=== PATIENT | male | born 1980 | race Caucasian/White ===

== ENCOUNTER 2019-05-02 23:01 | Emergency (ER) | payer SELFPAY ==
[~2019-05-02] VITALS: Ht 180.3 cm; Wt 103.4 kg
[2019-05-02 23:03] VITALS: Ht 180.3 cm; Wt 103.4 kg
[2019-05-02 23:37] LABS: BASOPHIL % 0.3 % (0-2); PLATELET COUNT 252 x10^3mcL (130-400); RED CELL DISTRIBUTION WIDTH 13.4 % (11.5-14.5)
[2019-05-03 00:41] VITALS: BP 137/95
== END 2019-05-03 00:41 | disposition left against medical advice (07) ==
LOC: ED 23:01
PROVIDERS: Emergency Medicine
DX: S06.0X0A Concussion without loss of consciousness, initial encounter (principal); S01.01XA Laceration without foreign body of scalp, initial encounter; Y04.0XXA Assault by unarmed brawl or fight, initial encounter; Y93.89 Activity, other specified; Y92.89 Other specified places as the place of occurrence of the external cause; Y99.8 Other external cause status
CPT/HCPCS: 36415; J2001